=== PATIENT | female | born 1940 | race Caucasian/White ===

== ENCOUNTER → 2018-09-06 20:15 | Outpatient (REF) | payer MEDICARE, SELFPAY ==
[2018-09-06 20:38] LABS: Alanine Aminotransferase 44 IU/L (9-52); Albumin 4.1 g/dL (3.5-5.0); Albumin Globulin Ratio 1.6 (1.0-2.8); Alkaline Phosphatase 69 U/L (38-126); Aspartate Aminotransferase 43 IU/L (14-36); Bilirubin Total 0.7 mg/dL (0.2-1.3); Blood Urea Nitrogen 24 mg/dL (7-17); Calcium 9.6 mg/dL (8.4-10.2); Carbon Dioxide 25 mmol/L (22-32); Chloride 107 mmol/L (98-107); Cholesterol 214 mg/dL (140-199); Estimated Glomerular Filt Rate > 60.0 mL/min (>60); Globulin 2.5 g/dL (1.7-4.1); Glucose 87 mg/dL (80-110); HDL Cholesterol 57 mg/dL (40-60); HEMOLYSIS 46 (0-50); LDL Cholesterol Calculated 139 mg/dL (<100); Potassium 4.9 mmol/L (3.4-5.1); Sodium 141 mmol/L (137-145); Total Protein 6.6 g/dL (6.3-8.2); Triglycerides 92 mg/dL (35-150)
== END ==
LOC: LAB 20:15
PROVIDERS: Family Provider Family Medicine Geriatric Medicine; PCP Family Medicine Geriatric Medicine; Visit Provider Family Medicine Geriatric Medicine
DX: I10 Essential (primary) hypertension (principal); E78.5 Hyperlipidemia, unspecified
CPT/HCPCS: 36415; 80053; 80061

== ENCOUNTER → 2021-08-26 09:59 | Outpatient (CLI) | payer MEDICARE, SELFPAY ==
[2021-08-26 10:50] LABS: COVID19 -Nasal RAPID Negative (Negative)
== END ==
PROVIDERS: Family Provider Family Medicine Geriatric Medicine; PCP Family Medicine Geriatric Medicine; Visit Provider Family Medicine Sleep Medicine
DX: Z20.822 Contact with and (suspected) exposure to COVID-19 (principal)
CPT/HCPCS: 87635

== ENCOUNTER → 2021-08-26 14:14 | Outpatient (CLI) | payer MEDICARE, SELFPAY ==
--- NOTE | 2021-08-26 | DI.NM.S_ITS ---
PROCEDURE: NM EXERCISE TREADMILL NON NUC COMPARISON: None. INDICATIONS: DYSPNEA ON EXERTION FINDINGS: The patient exercised for 6 minutes and 1 second, reaching 7.0 METs and MAHESH -30%. Target heart rate achieved. Appropriate BP response to exercise. No ECG evidence of ischemia. No angina during the study. IMPRESSION: Low risk, normal treadmill ECG only stress test. Dictated by: Ignacio Johnson MD on 08/26/2021 at 16:43 Approved by: Ignacio Johnson MD on 08/26/2021 at 16:46
== END ==
PROVIDERS: Family Provider Family Medicine Geriatric Medicine; PCP Student in an Organized Health Care Education/Training Program; Referring Provider Student in an Organized Health Care Education/Training Program; Visit Provider Student in an Organized Health Care Education/Training Program
DX: R06.00 Dyspnea, unspecified (principal); Z20.822 Contact with and (suspected) exposure to COVID-19
CPT/HCPCS: 87635; 93017; C9803